=== PATIENT | male | born 1985 | race Caucasian/White ===

== ENCOUNTER 2016-07-19 14:25 | Emergency (ER) | payer OTHER ==
[~2016-07-19] VITALS: Ht 182.9 cm; Wt 68.1 kg
[~2016-07-19 14:25] MED LIST: MULTI-DAY VITA1 EACH PO; NAPROXEN500 MG PO; OXYCODONE-APAP1 EACH PO; TRAMADOL HCL50 MG PO
[2016-07-19 16:57] VITALS: BP 102/72
== END 2016-07-19 16:58 | disposition home or self-care (01) ==
LOC: EME 14:25
DX: S93.401A Sprain of unspecified ligament of right ankle, initial encounter (principal); S83.91XA Sprain of unspecified site of right knee, initial encounter; X50.9XXA Other and unspecified overexertion or strenuous movements or postures, initial encounter; Y93.02 Activity, running; Y99.0 Civilian activity done for income or pay; Y92.149 Unspecified place in prison as the place of occurrence of the external cause
CPT/HCPCS: 73564; 73610; 99281; 99283

== ENCOUNTER 2017-07-03 21:49 | Emergency (ER) | payer OTHER ==
[~2017-07-03] VITALS: Ht 182.9 cm; Wt 69.2 kg
[2017-07-03] MEDS ORDERED: MOTRIN600 MG PO (23:16)
[2017-07-03 23:44] VITALS: BP 125/70
== END 2017-07-03 23:46 | disposition home or self-care (01) ==
LOC: EME 21:49
PROC: 2W3KX1Z Immobilization of Left Finger using Splint (ICD-10-PCS; principal; 2017-07-03)
DX: S60.032A Contusion of left middle finger without damage to nail, initial encounter (principal); W23.0XXA Caught, crushed, jammed, or pinched between moving objects, initial encounter; Y99.0 Civilian activity done for income or pay
CPT/HCPCS: 73140; 99281; 99283